=== PATIENT | male | born 1995 | race Caucasian/White ===

== ENCOUNTER 2017-05-16 14:39 | Emergency (ER) | payer BC, OTHER ==
[~2017-05-16] VITALS: Ht 188 cm; Wt 88.5 kg
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
--- NOTE | 2017-05-16 15:44 | NUR ---
PT OUT OF ER FOR XRAY.
--- NOTE | 2017-05-16 16:18 | NUR ---
Patient discharged to home in stable conditon. Written and verbal after care instructions given. Patient verbalizes understanding of instructions. Stressed follow up with pmd or return to ER for worsening s/s.
== END 2017-05-16 16:20 | disposition home or self-care (01) ==
LOC: ER 14:40
DX: M51.26 Other intervertebral disc displacement, lumbar region (principal); V43.52XA Car driver injured in collision with other type car in traffic accident, initial encounter; Y93.89 Activity, other specified; Y92.89 Other specified places as the place of occurrence of the external cause; Y99.8 Other external cause status
CPT/HCPCS: 72100; 99284; A4663